=== PATIENT | male | born 1995 | race Two or more races ===

== ENCOUNTER 2017-02-24 02:13 | Emergency (ER) | payer MEDICAID ==
[~2017-02-24] VITALS: Ht 177.8 cm; Wt 88.5 kg
[2017-02-24 02:50] LABS: Basophils # (auto) 0 uL; Basophils % (auto) 0.4 % (0.0-2.0); Eosinophils # (auto) 0.1 uL; Eosinophils % (auto) 0.9 % (0.0-7.0); Hematocrit 44.2 % (41.0-53.0); Hemoglobin 15.2 g/dL (13.5-17.5); Lymphocytes # (auto) 1.9 uL; Lymphocytes % (auto) 19.3 % (10.0-50.0); Mean Corpuscular Hemoglobin 32.2 pg (28.0-32.0); Mean Corpuscular Hgb Conc. 34.4 g/dL (32.0-36.0); Mean Corpuscular Volume 93.5 fL (80.0-100.0); Mean Platelet Volume 8.3 fL (6.9-10.8); Monocytes # (auto) 0.8 uL; Monocytes % (auto) 8.4 % (0.0-12.0); Neutrophils # (auto) 6.9 uL; Platelet Count (auto) 259 10^3/uL (140-450); Red Cell Distribution Width 12.9 % (11.8-14.3); White Blood Cell 9.7 10^3/uL (4.4-10.8)
[2017-02-24 03:05] LABS: Albumin 4.1 g/dL (3.4-5.0); BUN/Creatinine Ratio 19.1; Potassium 3.5 mmol/L (3.5-5.1)
[2017-02-24 03:08] LABS: Bilirubin, Total 0.3 mg/dL (0.2-1.0); Total Protein 7.6 g/dL (6.4-8.2)
[2017-02-24 03:22] LABS: Urine Bilirubin Negative (Negative); Urine Blood Negative /uL (Negative); Urine Color Yellow (Yellow); Urine Glucose Normal (Normal); Urine Ketone Negative (Negative); Urine Nitrite Negative (Negative); Urine RBC None Seen /hpf (0 - 3); Urine Squamous Epithelial Cell FEW /hpf (<5); Urine Urobilinogen Normal (Negative)
[2017-02-24] MEDS: SODIUM CHLORIDE 0.9% 1,000 ML IV ONE (08:29)
[2017-02-24] MEDS: KETOROLAC TROMETH 30 MG/ML 1ML VIAL IV ONE (08:29)
[2017-02-24] MEDS: METOCLOPRAMIDE HCL 5MG/ml INJ 2ml VIAL IV ONE (08:29)
[2017-02-24 11:00] VITALS: BP 106/69
== END 2017-02-24 11:41 | disposition home or self-care (01) ==
LOC: ER 02:14
DX: M54.9 Dorsalgia, unspecified (principal); M79.1 Myalgia; Z87.442 Personal history of urinary calculi
CPT/HCPCS: 36415; 74176; 80053; 81001; 85025; 96361; 96374; 96375; 99285; J1885; J2765; J7030

== ENCOUNTER 2022-01-04 20:36 | Emergency (ER) | payer MEDICAID ==
[~2022-01-04] VITALS: Ht 177.8 cm; Wt 100.0 kg
[2022-01-04 21:51] LABS: Urine Bacteria NONE SEEN /hpf (None Seen); Urine Blood Negative /uL (Negative); Urine Specific Gravity 1.016 (1.001-1.035); Urine WBC 1 /hpf (0 - 3)
[2022-01-04 21:56] LABS: Basophils # (auto) 0 10 ^3/uL (0-0.2); Basophils % (auto) 0.5 % (0.0-2.0); Eosinophils # (auto) 0.1 10 ^3/uL (0-0.8); Eosinophils % (auto) 1.4 % (0.0-7.0); Hematocrit 45.4 % (41.0-53.0); Hemoglobin 15.5 g/dL (13.5-17.5); Lymphocytes # (auto) 2.1 10 ^3/uL (0.4-5.4); Lymphocytes % (auto) 23.8 % (10.0-50.0); Mean Corpuscular Hgb Conc. 34.1 g/dL (32.0-36.0); Mean Corpuscular Volume 91.1 fL (80.0-100.0); Monocytes # (auto) 0.6 10 ^3/uL (0-1.3); Monocytes % (auto) 6.9 % (0.0-12.0); Neutrophils # (auto) 5.8 10 ^3/uL (1.6-8.6); Neutrophils % (auto) 67.4 % (37.0-80.0); Red Blood Cells 4.98 10^6/uL (4.5-5.90); Red Cell Distribution Width 12.4 % (11.8-14.3); White Blood Cell 8.7 10^3/uL (4.4-10.8)
[2022-01-04 22:13] LABS: Albumin 4.4 g/dL (3.4-5.0); BUN/Creatinine Ratio 14.3; Calcium 9.2 mg/dL (8.5-10.1); Potassium 3.8 mmol/L (3.5-5.1)
[2022-01-04 22:16] LABS: Bilirubin, Total 0.5 mg/dL (0.2-1.0); Total Protein 7.6 g/dL (6.4-8.2)
[2022-01-05] MEDS ORDERED: ONDA-144 PO (03:57)
[2022-01-05] MEDS ORDERED: CIPR-173 PO (03:57)
[2022-01-05] MEDS ORDERED: PERCOT PO (03:57)
[2022-01-05 04:10] VITALS: BP 116/71
== END 2022-01-05 04:17 | disposition home or self-care (01) ==
LOC: ER 20:36
DX: K57.90 Diverticulosis of intestine, part unspecified, without perforation or abscess without bleeding (principal)
CPT/HCPCS: 36415; 71250; 74176; 80053; 81001; 83690; 85025

== ENCOUNTER 2024-06-08 19:12 | Emergency (ER) | payer MEDICAID ==
[~2024-06-08] VITALS: Ht 177.8 cm; Wt 105.0 kg
[~2024-06-08 19:12] MED LIST: CIPR-173 PO; ONDA-144 PO; PERCOT PO
--- NOTE | 2024-06-08 22:56 | DVH ---
CLINICAL HISTORY: LOW BACK PAIN WITH RADIATING DOWN BILATERAL LEGS TECHNIQUE: CT of the lumbar spine was performed without intravenous contrast. This exam was performed according to our departmental dose optimization program. Up-to-date CT equipment and radiation dose reduction techniques are utilized as appropriate. CTDI: 30.76 DLP: 1047.12 WID: COMPARISON: None FINDINGS: 5 [id number] lumbar type vertebral bodies. The vertebral body heights are maintained. Alignment is preserved. Disc spaces preserved. There is no acute fracture. There is no high-grade neural ky inal or spinal stenosis. The posterior paraspinal soft tissues are unremarkable. IMPRESSION: No acute osseous abnormality or traumatic malalignment.
[2024-06-08] MEDS ORDERED: TIZA10TA PO (23:56)
[2024-06-08] MEDS ORDERED: METH4PAK PO (23:56)
--- NOTE | 2024-06-08 23:56 | ED.PDOC ---
Back pain HPI HPI Comments PT C/O LOWER BACK PAIN RADIATING TO BOTH LEGS, STATES FOR OVER A YEAR. DENIES ANY ACCIDENT OR INJURY. PT ALSO STATES HE HAS COLITIS AND WOULD LIKE IT "CHECKED OUT." HAS NOT BEEN SEEN FOR HIS BACK PAIN. DENIES NAUSEA, VOMITING, DIARRHEA, AND ABDOMINAL PAIN, CHEST PAIN, SHORTNESS OF BREATH. Chief Complaint: Back Pain Time Seen by MD: 19:27 Primary Care Provider: JONATHAN Harris Notes: Nurses Notes, Medications, Allergies Allergies: Coded Allergies: NO KNOWN ALLERGIES (Unverified , 12/10/15) Home Meds Active Scripts Tizanidine Hydrochloride (Tizanidine Hydrochloride) 4 Mg Tab, 4 MG PO BID PRN for 6 Days, #12 TAB Prov:CHIP CAMPBELL [employer] 06/08/24 Methylprednisolone (Medrol Dosepak) 4 Mg Dale, 4 MG PO UD for 6 Days, #21 TAB UAD Prov:CHIP CAMPBELL [employer] 06/08/24 Ondansetron (Zofran) 4 Mg Tab, 4 MG PO BID for 7 Days, #14 MG Prov:OVIDIO VERDUZCO MD 01/05/22 Oxycodone W/ Acetaminophen (Percocet 5/325MG) 1 Tab Tb, 1 TAB PO BID for 7 Days, #14 TAB Prov:OVIDIO VERDUZCO MD 01/05/22 Ciprofloxacin Hcl (Cipro) 500 Mg Tab, 500 MG PO BID for 7 Days, #14 CAP Prov:OVIDIO VERDUZCO MD 01/05/22 Information Source: Patient Mode of Arrival: Ambulatory Past Medical History PAST MEDICAL HISTORY: Kidney Stones Surgical History: Denies all surgeries Family History Family History: Unknown Social History Smoker: Non-Smoker Alcohol: Denies ETOH Use Drugs: Denies Drug Use Lives In: Home Constitutional: denies: chills, diaphoresis, fatigue, fever, malaise, sweats, weakness, others EENTM: denies: blurred vision, double vision, ear bleeding, ear discharge, ear drainage, ear pain, ear ringing, eye pain, eye redness, hearing loss, mouth pain , mouth swelling, nasal discharge, nose bleeding, nose congestion, nose pain, photophobia, tearing, throat pain, throat swelling, voice changes, others Respiratory: denies: cough, hemoptysis, orthopnea, SOB at rest, shortness of breath, SOB with excertion, stridor, wheezing, others Cardiovascular: denies: chest pain, dizzy spells, diaphoresis, Dyspnea on exertion, edema, irregular heart beat, left arm pain, lightheadedness, palpitations, PND, syncope, others Gastrointestinal: denies: abdomen distended, abdominal pain, blood streaked bowels, constipated, diarrhea, dysphagia, difficulty swallowing, hematemesis, melena, nausea, poor appetite, poor fluid intake, rectal bleeding, rectal pain, vomiting, others Genitourinary: denies: burning, dysuria, flank pain, frequency, hematuria, incontinence, penile discharge, penile sore, pain, testicle pain, testicle swelling, urgency, others Neurological: denies: dizziness, fainting, headache, left sided numbness, left sided weakness, numbness, paresthesia, pre-existing deficit, right sided numbness, right sided weakness, seizure, speech problems, tingling, tremors, weakness, others Musculoskeletal: reports: back pain; denies: gout, joint pain, joint swelling, muscle pain, muscle stiffness, neck pain, others Integumetry: denies: bruises, change in color, change in hair/nails, dryness, laceration, lesions, lumps, rash, wounds, others Allergic/Immunocompromised: denies: Difficulty Healing, Frequent Infections, Hives, Itching, others Hematologic/Lymphatic: denies: anemia, blood clots, easy bleeding, easy bruising, swollen glands, others Endocrine: denies: excessive hunger, excessive sweating, excessive thirst, excessive urination, flushing, intolerance to cold, intolerance to heat, unexplained weight gain, unexplained weight loss, others Psychiatric: denies: anxiety, bipolar disorder, depression, hopeless, panic disorder, schizophrenia, sleepless, suicidal, others Physical Exam General Appearance: No Apparent Distress, Normal HEENT: Pharynx Normal, TMs Normal Neck: Full Range of Motion, Non-Tender, Normal Respiratory: Lungs Clear, No Respiratory Distress, Normal Breath Sounds Cardiovascular: No Murmur, Normal Peripheral Pulses, Regular Rate/Rhythm Breast Exam: Deferred Gastrointestinal: No Organomegaly, Non Tender, No Pulsatile Mass, Normal Bowel Sounds, Soft Genitalia: Deferred Pelvic: Deferred Rectal: Deferred Extremities: Normal capillary refill, Normal inspection, Normal range of motion, Non-tender, No pedal edema Musculoskeletal : Location: Left Extremity Location: Back (IN HIS PALPATED OVER LEFT-SIDED BACK MUSCULATURE. NEGATIVE STRAIGHT LEG RAISE BILATERAL STRENGTH SENSORY MOTION INTACT NO NOTED FOOT DROP POSITIVE PEDAL PULSES) Apperance: Normal Neurologic: Alert, medical economics consultant II-XII nml as Tested, No Motor Deficits, Normal Affect, Normal Mood, No Sensory Deficits Cerebellar Function: Normal Reflexes: Normal Skin: Dry, Normal Color, Warm Lymphatic: No Adenopathy Was a procedure done? Was a procedure done?: No Back Pain Differential Dx Differential Diagnosis: Fracture, Musculoskeletal Pain X-Ray, Labs, Meds, VS Vital Signs Date Time Temp Pulse Resp B/P (MAP) Pulse Ox O2 Delivery O2 Flow Rate FiO2 06/08/24 22:12 97.7 93 16 123/72 (89) 98 97.7 06/08/24 19:35 99.5 105 18 119/77 (91) 95 99.5 X-Ray, Labs, Meds, VS Comment PATIENT GIVEN TORADOL 60 IM MG PATIENT REPORTS IMPROVEMENT IN PAIN AND FUNCTION REQUESTING. DISCHARGE AT THIS TIME. CT IS GROSSLY NORMAL NO ACUTE OR CHRONIC FINDINGS NOTED. LIKELY MUSCLE STRAIN. SCRIPT MEDROL DOSEPAK AND MUSCLE RELAXER. TAKE MEDICATIONS PRESCRIBED SIDE EFFECTS DISCUSSED. ADVISED TO FOLLOW UP WITH HIS PCP IN 1-2 DAYS CONSIDER REFERRAL FOR PHYSICAL THERAPY OR IF SYMPTOMS PERSIST MRI. ER RETURN PRECAUTIONS GIVEN PATIENT INDICATES UNDERSTANDING AGREES WITH DISCHARGE PLAN OF CARE. Time of 1ST Reevaluation: 00:19 Reevaluation 1ST: Improved Patient Education/Counseling: Diagnosis, Treatment, Prognosis, Need For Follow Up Family Education/Counseling: No Family Present Departure 1 Departure Time of Disposition: 00:20 Impression: Primary Impression: Lumbar sprain Qualified Codes: S33.5XXA - Sprain of ligaments of lumbar spine, initial en counter Additional Impression: Musculoskeletal pain Disposition: HOME / SELF CARE / HOMELESS Condition: Stable e-Prescriptions Tizanidine Hydrochloride (Tizanidine Hydrochloride) 4 Mg Tab 4 MG PO BID PRN for 6 Days, #12 TAB Prov: CHIP CAMPBELL 06/08/24 Methylprednisolone (Medrol Dosepak) 4 Mg Dale 4 MG PO UD for 6 Days, #21 TAB UAD Prov: CHIP CAMPBELL 06/08/24 Discharged With: Self Critical Care Note Critical Care Time?: No Stability Stability form required: No CHIP CAMPBELL Jun 08, 2024 23:56
[2024-06-09 00:22] VITALS: BP 115/73; TEMP 98.1
[2024-06-09 00:27] VITALS: PULSE 74; RESP 20; O2SAT 97
== END 2024-06-09 00:38 | disposition home or self-care (01) ==
LOC: ER 19:12
DX: S33.5XXA Sprain of ligaments of lumbar spine, initial encounter (principal); M79.18 Myalgia, other site; X58.XXXA Exposure to other specified factors, initial encounter; Y93.89 Activity, other specified; Y92.89 Other specified places as the place of occurrence of the external cause; Y99.8 Other external cause status
CPT/HCPCS: 72131